=== PATIENT | female | born 1955 | race Caucasian/White ===

== ENCOUNTER → 2018-09-19 | Outpatient (CLI) | payer OTHER ==
--- NOTE | 2018-09-20 09:25 | CRLMR ---
INDICATION: Lateral pain after twisting injury. COMPARISON: None available. TECHNIQUE: Axial T1 and PD fat-sat, sagittal PD and T2 fat-sat and coronal PD and PD fat-sat sequences. FINDINGS: Medial compartment: Meniscus: Intact with expected morphology and signal. Articular cartilage: Shallow undulating grade 2 thinning. No secondary degenerative finding. Medial collateral ligament: Intact. - Cruciate ligaments: ACL: Intact. PCL: Intact. - Lateral compartment: Meniscus: Prominent degenerative marginal tearing anterior body and anterior horn with subtle cystic infiltration and expansion at the anterior insertion. Degenerative tearing mildly blunts the undersurface and free margin of the body. Posterior horn is spared. Posterior root is intact. Articular cartilage: Irregular undulating grade 2 to grade 3 cartilage loss with some foci of likely full-thickness loss most evident in the outer tibial plateau where there is prominent sclerosis and edema. Relative sparing of the posterior condyle. Small marginal osteophytes. Lateral collateral complex: Intact. - Patellofemoral compartment: High grade 2 to grade 3 irregular thinning in the central patella with shallow subchondral cysts and sclerosis. Some grade 2 thinning at the inferior trochlea. - Extensor mechanism: Distal quadriceps tendon and patellar tendon are intact with anatomic patellar alignment. Capsule and retinacula appear within normal limits. - Bones and soft tissues: Small joint effusion. No fracture or bone lesion. Posterior periarticular soft tissues are unremarkable. IMPRESSION: 1. 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 2. Mild patellofemoral osteoarthritis. Dictated by Ismael Euceda MD @ Sep 20 2018 9:18AM Signed by Dr. Ismael Euceda @ Sep 20 2018 9:24AM
== END | disposition home or self-care (01) ==
LOC: JP.MRI 10:55
PROVIDERS: ATTEND Physician Assistant
DX: S89.92XA Unspecified injury of left lower leg, initial encounter (principal); M17.12 Unilateral primary osteoarthritis, left knee; S83.207A Unspecified tear of unspecified meniscus, current injury, left knee, initial encounter
CPT/HCPCS: 73721-LT

== ENCOUNTER 2023-11-17 07:51 | Day surgery (SDC) | payer MEDICARE ==
[2023-11-17] MEDS ORDERED: fentaNYL 50 MCG/ML SDV ONE (08:12)
[2023-11-17] MEDS ORDERED: Propofol 200 MG/20 ML SDV ONE ×2 (08:12→09:25)
[2023-11-17] MEDS: Sodium Chloride 0.9% 1,000 ML IV SCH (08:45)
[2023-11-17 10:36] VITALS: BP 137/43; PULSE 60
== END 2023-11-17 10:42 | disposition home or self-care (01) ==
LOC: JP.SDS 07:51
PROVIDERS: ATTEND Surgery
DX: Z12.11 Encounter for screening for malignant neoplasm of colon (principal); D12.3 Benign neoplasm of transverse colon; K57.30 Diverticulosis of large intestine without perforation or abscess without bleeding; E78.5 Hyperlipidemia, unspecified; I10 Essential (primary) hypertension; K21.9 Gastro-esophageal reflux disease without esophagitis; R73.03 Prediabetes; Z87.891 Personal history of nicotine dependence
CPT/HCPCS: 00811-QZ; 88305; J2704; J3010; J7030

== ENCOUNTER 2025-02-19 20:12 | Inpatient (IN) | payer MEDICARE ==
[2025-02-19] MEDS ORDERED: Naloxone 0.4 MG/ML SDV IVPUSH PRN (20:59)
[2025-02-19] MEDS ORDERED: Sodium Chloride 0.9% 10 ML Syringe FLUSH PRN (20:59)
[2025-02-19 21:08] LABS: BASOPHILS ABSOLUTE AUTO 0.03 K/uL (0.00-0.10); BASOPHILS PERCENT AUTO 0.4 % (0.1-1.3); EOSINOPHILS ABSOLUTE AUTO 0.15 K/uL (0.00-0.40); EOSINOPHILS PERCENT AUTO 2.0 % (0.0-5.4); IMMATURE GRAN ABSOLUTE AUTO 0.05 K/uL (0.00-0.23); IMMATURE GRAN PERCENT AUTO 0.7 % (0.0-0.7); LYMPHOCYTES ABSOLUTE AUTO 1.27 K/uL (0.8-3.3); LYMPHOCYTES PERCENT AUTO 16.8 % (11.4-47.7); MONOCYTES ABSOLUTE AUTO 0.62 K/uL (0.20-0.90); MONOCYTES PERCENT AUTO 8.2 % (3.3-12.6); NEUTROPHILS ABSOLUTE AUTO 5.45 K/uL (1.0-7.6); NEUTROPHILS PERCENT AUTO 71.9 % (40.0-78.1); PLATELET COUNT,PLT 284 K/uL (130-375); RED BLOOD CELL COUNT 3.46 M/uL (3.77-5.24); WHITE BLOOD CELL COUNT,WBC 7.6 K/uL (3.2-11.0)
[2025-02-19 21:30] LABS: A/G RATIO 1.3 (1.2-2.2); ALANINE AMINOTRANSFERASE,ALT 34 U/L (12-78); ASPARTATE AMNIOTRANSFERASE,AST 38 U/L (15-37); BILIRUBIN TOTAL 0.4 mg/dL (0.2-1.0); BLOOD UREA NITROGEN,BUN 9 mg/dL (7-18); CARBON DIOXIDE,CO2 28 mmol/L (21-32); CHLORIDE,CL 99 mmol/L (100-108); CREATININE 0.6 mg/dL (0.6-1.0); EST CRCL DRUG DOSING (CG) 71.14 mL/min; ESTIMATED GFR 96 mL/min (>60); GLUCOSE RANDOM 128 mg/dL (74-106); POTASSIUM,K 4.6 mmol/L (3.6-5.2); PROTEIN TOTAL,TP 7.0 g/dL (6.4-8.2); SODIUM,NA 137 mmol/L (140-148)
[2025-02-19] MEDS: Ondansetron 4 MG/2 ML SDV IVPUSH ONE (23:00)
[2025-02-20] MEDS ORDERED: Sodium Chloride 0.9% 10 ML Syringe FLUSH PRN (00:21)
[2025-02-20] MEDS ORDERED: Ondansetron 4 MG Tab.DIS PO PRN (00:21)
[2025-02-20] MEDS ORDERED: Naloxone 0.4 MG/ML SDV IVPUSH PRN (00:21)
[2025-02-20] MEDS ORDERED: Sennosides/Docusate Sodium 50-8.6 MG Tab PO PRN (00:21)
[2025-02-20] MEDS ORDERED: Magnesium Hydroxide 400 MG/5 ML Susp 30 ML Cup PO PRN (00:21)
[2025-02-20] MEDS: Ondansetron 4 MG/2 ML SDV IV PRN (04:51)
[2025-02-20 05:56] LABS: PLATELET COUNT,PLT 271.0 K/uL (130-375); RED BLOOD CELL COUNT 3.34 M/uL (3.77-5.24); WHITE BLOOD CELL COUNT,WBC 8.5 K/uL (3.2-11.0)
[2025-02-20 06:48] LABS: BLOOD UREA NITROGEN,BUN 8.0 mg/dL (7-18); CARBON DIOXIDE,CO2 24.0 mmol/L (21-32); CHLORIDE,CL 100.0 mmol/L (100-108); CREATININE 0.6 mg/dL (0.6-1.0); EST CRCL DRUG DOSING (CG) 71.14 mL/min; ESTIMATED GFR 96.0 mL/min (>60); GLUCOSE RANDOM 163.0 mg/dL (74-106); POTASSIUM,K 3.5 mmol/L (3.6-5.2); SODIUM,NA 137.0 mmol/L (140-148)
[2025-02-20 06:56] LABS: AMPHETAMINES SCREEN, URINE NEGATIVE (NEGATIVE); METHADONE SCREEN, URINE NEGATIVE (NEGATIVE); METHAMPHETAMINES SCREEN, URINE NEGATIVE (NEGATIVE); OXYCODONE SCREEN,URINE NEGATIVE (NEGATIVE); PROPOXYPHENE SCREEN,URINE NEGATIVE (NEGATIVE); THC SCREEN,URINE 50 NG/ML NEGATIVE (NEGATIVE)
[2025-02-20 07:29] LABS: APPEARANCE,URINE CLEAR (CLEAR); GLUCOSE,URINE NEGATIVE (NEGATIVE); OCCULT BLOOD,URINE TRACE-INTACT (NEGATIVE)
[2025-02-20 07:32] LABS: SQUAMOUS EPITHELIAL CELLS,UR FEW /HPF; UROTHELIAL CELLS,URINE NOT SEEN /HPF
[2025-02-20] MEDS: Cyanocobalamin (Vitamin B12) 1,000 MCG Tab PO SCH (08:39)
[2025-02-20] MEDS: Scopalamine 1mg/3day Transdermal Patch TRDERM PRN (09:57)
[2025-02-20] MEDS: Magnesium Sulfate 2 GM/50 mL 2 GM in Premix Bag 1 BAG IV ONE (11:03)
[2025-02-20] MEDS ORDERED: Dexamethasone 4 MG/ML SDV ONE (16:43)
[2025-02-20] MEDS ORDERED: fentaNYL 250 MCG/5 ML SDV ONE ×2 (16:43→17:20)
[2025-02-20] MEDS ORDERED: Propofol 200 MG/20 ML SDV ONE (16:43)
[2025-02-20] MEDS ORDERED: Ondansetron 4 MG/2 ML SDV ONE (16:43)
[2025-02-20] MEDS ORDERED: Lactated Ringers 1,000 ML ONE (17:14)
[2025-02-21 05:53] LABS: PLATELET COUNT,PLT 216.0 K/uL (130-375); RED BLOOD CELL COUNT 2.7 M/uL (3.77-5.24); WHITE BLOOD CELL COUNT,WBC 7.7 K/uL (3.2-11.0)
[2025-02-21 06:04] LABS: BLOOD UREA NITROGEN,BUN 5.0 mg/dL (7-18); CARBON DIOXIDE,CO2 28.0 mmol/L (21-32); CHLORIDE,CL 107.0 mmol/L (100-108); CREATININE 0.5 mg/dL (0.6-1.0); EST CRCL DRUG DOSING (CG) 85.37 mL/min; ESTIMATED GFR 100.0 mL/min (>60); GLUCOSE RANDOM 147.0 mg/dL (74-106); POTASSIUM,K 4.4 mmol/L (3.6-5.2); SODIUM,NA 139.0 mmol/L (140-148)
[2025-02-21] MEDS: Aspirin 325 MG Tab.EC PO SCH (09:13)
[2025-02-21] MEDS: VERIFY SCOP PATCH TOP SCH (09:19)
[2025-02-22 06:07] VITALS: BP 119/54; PULSE 71
== END 2025-02-22 14:15 | disposition home health service (06) | DRG 522 ==
LOC: JP.ED 20:12 → JP.MS 23:03
PROVIDERS: ADMIT Nurse Practitioner; ATTEND Internal Medicine
PROC: 0SRR0JA Replacement of Right Hip Joint, Femoral Surface with Synthetic Substitute, Uncemented, Open Approach (ICD-10-PCS; 2025-02-19)
PROC: 3E03329 Introduction of Other Anti-infective into Peripheral Vein, Percutaneous Approach (ICD-10-PCS; principal; 2025-02-20 16:00)
DX: S72.001A Fracture of unspecified part of neck of right femur, initial encounter for closed fracture (principal); R33.9 Retention of urine, unspecified; I10 Essential (primary) hypertension; I25.10 Atherosclerotic heart disease of native coronary artery without angina pectoris; S72.011A Unspecified intracapsular fracture of right femur, initial encounter for closed fracture; J30.2 Other seasonal allergic rhinitis; E78.00 Pure hypercholesterolemia, unspecified; H54.7 Unspecified visual loss; E11.9 Type 2 diabetes mellitus without complications; F12.90 Cannabis use, unspecified, uncomplicated; F10.90 Alcohol use, unspecified, uncomplicated; M19.90 Unspecified osteoarthritis, unspecified site; Z86.0100 Personal history of colon polyps, unspecified; Z87.81 Personal history of (healed) traumatic fracture; Z87.442 Personal history of urinary calculi; Z90.89 Acquired absence of other organs; Z98.890 Other specified postprocedural states; Z79.899 Other long term (current) drug therapy; W01.0XXA Fall on same level from slipping, tripping and stumbling without subsequent striking against object, initial encounter
CPT/HCPCS: 36415; 73502 ×2; 80053; 80307; 85025; 93010; 96374; 96375; 99285 ×2; J2405; 51702; 72170; 72170-26; 80048; 80305-QW; 81001; 83735; 85027; 93005; 97110-GP; 97116-GP; 97161-GP; 97530-GP; 99223; 99231; 99232; 99238; A9270-GY; C1776; J0665; J0690; J1100; J1171; J2270; J2470; J2550; J2704; J3010; J3475; J3480; J3490; J7030; J7120